=== PATIENT | male | born 1990 | race Two or more races ===

== ENCOUNTER 2021-09-14 19:49 | Emergency (ER) | payer SELFPAY ==
[~2021-09-14] VITALS: Ht 180.3 cm; Wt 95.3 kg
[2021-09-14] MEDS ORDERED: ONDANSETRON HCL 4 MG/2 ML VIAL ONE (20:27)
[2021-09-14] MEDS ORDERED: SODIUM CHLORIDE 0.9% 1,000 ML IV ONE (21:00)
[2021-09-14] MEDS ORDERED: ONDANSETRON HCL 4 MG/2 ML VIAL IV ONE (21:00)
[2021-09-14 21:06] LABS: Basophils # (auto) 0.1 10 ^3/uL (0-0.2); Basophils % (auto) 0.9 % (0.0-2.0); Eosinophils # (auto) 0.2 10 ^3/uL (0-0.8); Eosinophils % (auto) 2.6 % (0.0-7.0); Hemoglobin 15.9 g/dL (13.5-17.5); Lymphocytes # (auto) 1.1 10 ^3/uL (0.4-5.4); Lymphocytes % (auto) 18.3 % (10.0-50.0); Mean Corpuscular Hgb Conc. 34.5 g/dL (32.0-36.0); Mean Corpuscular Volume 92.7 fL (80.0-100.0); Monocytes % (auto) 15.2 % (0.0-12.0); Neutrophils # (auto) 3.9 10 ^3/uL (1.6-8.6); Red Blood Cells 4.96 10^6/uL (4.5-5.90); Red Cell Distribution Width 13.6 % (11.8-14.3); White Blood Cell 6.3 10^3/uL (4.4-10.8)
[2021-09-14 21:22] LABS: Albumin 4.6 g/dL (3.4-5.0); Calcium 9.4 mg/dL (8.5-10.1); Potassium 4.2 mmol/L (3.5-5.1)
[2021-09-14 21:25] LABS: BUN/Creatinine Ratio 8.3; Bilirubin, Total 0.3 mg/dL (0.2-1.0); Total Protein 9.6 g/dL (6.4-8.2)
[2021-09-15] MEDS ORDERED: PROMETHAZINE HCL 25 MG/ML 1ML IV ONE (00:15)
[2021-09-15] MEDS ORDERED: PROCHLORPERAZINE EDISYLATE 5 MG/ML 2ML VIAL IV ONE (02:30)
[2021-09-15] MEDS ORDERED: PANTOPRAZOLE 40 MG/10 ML VIAL INJ IV ONE (02:30)
[2021-09-15] MEDS ORDERED: SUCRALFATE 1 GM/10 ML ORAL SUSP PO ONE (03:00)
[2021-09-15] MEDS ORDERED: FAMOTIDINE (10MG/ML) 2ML VL IV ONE (03:00)
[2021-09-15 03:11] LABS: Amylase 39 U/L (25-115); Lipase 128 U/L (73-393)
[2021-09-15 03:21] VITALS: BP 116/70
[2021-09-15 04:46] LABS: Urine Bacteria NONE SEEN /hpf (None Seen); Urine Blood Negative /uL (Negative); Urine Mucus FEW (None Seen); Urine Specific Gravity 1.017 (1.001-1.035); Urine Sperm PRESENT /hpf (None Seen); Urine WBC 2 /hpf (0 - 3)
== END 2021-09-15 07:03 | disposition home or self-care (01) ==
LOC: ER 19:54
DX: K29.00 Acute gastritis without bleeding (principal)
CPT/HCPCS: 36415; 71045; 74176; 80053; 81001; 82150; 83690; 85025; 96361; 96374; 96375; 99285; C9113; J0780; J2405; J2550; J3490; J7030